=== PATIENT | female | born 1940 | race Caucasian/White ===

== ENCOUNTER 2017-10-06 23:05 | Emergency (ER) | payer OTHER ==
[~2017-10-06] VITALS: Ht 170.2 cm; Wt 59.6 kg
[~2017-10-06 23:05] MED LIST: BACTRIM,SEPT1 TABLET PO; CALCIUM; CALCIUM CARBON600 M1 PO; DILAUDID2 MG PO; ELAVIL10 MG PO; FISH OIL SOFTG1 EACH PO; LO-DOSE ASPIRIN81 M1 PO; MAGNESIUM; Magnesium PO; PRAVACHOL10 MG PO; PROZAC20 MG PO; PROZAC40 MG PO; TYLENOL ARTHRI650 MG PO; Tylenol Extra Streng PO; ULTRAM50 MG PO; VITAMIN D; VITAMIN D2000 INTUN PO; ZINC; Zinc Gluconate PO
[2017-10-06 23:36] LABS: HEMATOCRIT 37.7 % (36.0-46.0); HEMOGLOBIN 12.5 G/DL (11.9-15.5); MCH 32.3 PG (29.0-34.0); MCHC 33.2 G/DL (30.0-36.0); MCV 97.4 FL (83-99); PLATELET COUNT 306 K/uL (156-360); RBC DIS.WIDTH-CV 12.3 % (11.8-14.6); RBC DIS.WIDTH-SD 43.9 % (39-53); RED BLOOD COUNT 3.87 M/uL (3.80-5.20); WHITE BLOOD COUNT 11.4 K/uL (4.1-10.2)
[2017-10-06 23:45] LABS: CHLORIDE 105 mEq/L (99-109); SODIUM 137 mEq/L (136-147)
[2017-10-06 23:47] LABS: GLUCOSE 118 mg/dL (70-99)
[2017-10-06 23:51] LABS: CREATININE 1.1 mg/dL (0.6-1.3); GFR ESTIMATE (CALCULATED) 51 mL/min/
[2017-10-06 23:52] LABS: UREA NITROGEN (BUN) 22 mg/dL (9-23)
[2017-10-06 23:59] LABS: TROP-I INTERPRETATION NEGATIVE; TROPONIN-I < 0.01 ng/mL (0.0-0.30)
[2017-10-07] MEDS ORDERED: PERCOCET 5/31 TABLET PO (04:10)
[2017-10-07 04:53] VITALS: BP 100/54
== END 2017-10-07 04:55 | disposition home or self-care (01) ==
LOC: EME 23:05
DX: S22.41XA Multiple fractures of ribs, right side, initial encounter for closed fracture (principal); S00.81XA Abrasion of other part of head, initial encounter; S80.211A Abrasion, right knee, initial encounter; V18.4XXA Pedal cycle driver injured in noncollision transport accident in traffic accident, initial encounter; Y93.55 Activity, bike riding; R91.8 Other nonspecific abnormal finding of lung field; J98.11 Atelectasis; M17.11 Unilateral primary osteoarthritis, right knee; E78.5 Hyperlipidemia, unspecified; F32.9 Major depressive disorder, single episode, unspecified; F17.200 Nicotine dependence, unspecified, uncomplicated; Z79.82 Long term (current) use of aspirin; Z87.81 Personal history of (healed) traumatic fracture; Z96.651 Presence of right artificial knee joint; Z90.710 Acquired absence of both cervix and uterus; Z88.6 Allergy status to analgesic agent; Z88.5 Allergy status to narcotic agent; Z88.0 Allergy status to penicillin; Z88.1 Allergy status to other antibiotic agents; Z88.2 Allergy status to sulfonamides
CPT/HCPCS: 70450; 71046; 71260; 73564; 80048; 84484; 85027; 93005; 99281; 99284